=== PATIENT | female | born 1955 | race Caucasian/White ===

== ENCOUNTER 2022-10-20 05:52 | Day surgery (SDC) | payer OTHER ==
[~2022-10-20] VITALS: Ht 154.9 cm; Wt 53.1 kg
[2022-10-20] MEDS ORDERED: BENZOCAINE 20% 50 MCG/SPRAY 57 GM TP ONE (05:53)
[2022-10-20] MEDS ORDERED: LIDOCAINE 2% 11 ML JELLY TP ONE (05:53)
[2022-10-20] MEDS ORDERED: LIDOCAINE 4% 50 ML SOLUTION TP ONE (05:53)
[2022-10-20 06:50] LABS: COVID AG,FIA SOURCE NASAL SWAB
[2022-10-20] MEDS ORDERED: SODIUM CHLORIDE 0.9% 1,000 ML IV ONE (07:00)
[2022-10-20] MEDS ORDERED: SODIUM CHLORIDE 0.9% 1,000 ML ONE (07:10)
[2022-10-20] MEDS ORDERED: MIDAZOLAM HCL 2 MG/2 ML VIAL ONE (07:53)
[2022-10-20] MEDS ORDERED: FentaNYL CITRATE PF 100 MCG/2 ML VIAL ONE (07:53)
[2022-10-20] MEDS ORDERED: ALBU8HFA IH (08:51)
[2022-10-20] MEDS ORDERED: PRED-729 PO (08:51)
[2022-10-20] MEDS ORDERED: MONT-35 PO (08:51)
[2022-10-20] MEDS ORDERED: MELO-381 PO (08:51)
[2022-10-20] MEDS ORDERED: FLUT16SP NASAL (08:51)
[2022-10-20] MEDS ORDERED: ENAL10TA18 PO (08:51)
[2022-10-20] MEDS ORDERED: ALEN70TA65 PO (08:51)
[2022-10-20] MEDS ORDERED: ASPI-1444 PO (08:51)
[2022-10-20] MEDS ORDERED: FLUT220HFA IH (08:51)
[2022-10-20] MEDS ORDERED: CETI-450 PO (08:51)
[2022-10-20] MEDS ORDERED: ACET15SO4 AD (08:51)
[2022-10-20] MEDS ORDERED: CHOL200059 PO (08:51)
[2022-10-20] MEDS ORDERED: BENZ-70 PO (08:51)
[2022-10-20] MEDS ORDERED: FISH1CAP27 PO (08:51)
[2022-10-20] MEDS ORDERED: HYDR25TA PO (08:51)
[2022-10-20] MEDS ORDERED: OMEP20 PO (08:51)
[2022-10-20] MEDS ORDERED: ROSU10TA72 PO (08:51)
[2022-10-20] MEDS ORDERED: DOCU-350 PO (08:51)
[2022-10-20] MEDS ORDERED: MethylPREDNISolone SOD SUCC 125 MG/2 ML VIAL IVP ONE (09:15)
[2022-10-20] MEDS ORDERED: OXYGEN THERAPY IH SCH (20:00)
== END 2022-10-20 11:20 | disposition home or self-care (01) ==
LOC: SURGERY 05:52
PROVIDERS: ATTEND Internal Medicine Critical Care Medicine
DX: J38.4 Edema of larynx (principal); B37.0 Candidal stomatitis; I10 Essential (primary) hypertension; Z20.822 Contact with and (suspected) exposure to COVID-19; E78.00 Pure hypercholesterolemia, unspecified; Z98.890 Other specified postprocedural states; Z79.899 Other long term (current) drug therapy
CPT/HCPCS: 31623; 88112; 87101; 87220; 87070; 88305; 31624; 71045; 87015; 87426; 87206; J3010; J2250; J2930; Q9967; J7030; C9803; Z7610